=== PATIENT | male | born 1995 | race Caucasian/White ===

== ENCOUNTER 2018-11-21 11:26 | Emergency (ER) | payer OTHER ==
[2018-11-21 11:30] VITALS: BP 132/60; PULSE 102; TEMP 98.1; BMI 22.6
[2018-11-21] MEDS ORDERED: MAG HYDROX/AL HYDROX/SIMETH 30 ML UNIT-DOSE CUP ONE (12:28)
[2018-11-21] MEDS ORDERED: MAG HYDROX/AL HYDROX/SIMETH 30 ML UNIT-DOSE CUP PO ONE (12:35)
[2018-11-21 12:40] LABS: BASO % 0.3 % (0-2.0); EOS % 0.3 % (0-4.5); HEMATOCRIT 44.6 % (35.4-49); HEMOGLOBIN 15.9 GM/dL (11.7-16.9); LYMPH % 11.9 % (8-40); MCH 30.4 pg (25.7-33.7); MCHC 35.6 g/dl (32.0-35.9); MEAN CELL VOLUME 85.3 fl (80-96); MEAN PLT VOLUME 8.7 fl (7.5-11.1); MONO % 2.6 % (3.8-10.2); NEUT % 84.9 % (42.8-82.8); PLATELET COUNT 228 K/MM3 (134-434); RBC 5.22 M/mm3 (4.00-5.60); RDW 12.9 % (11.9-15.9)
--- NOTE | 2018-11-21 12:41 | PDOC ---
History of Present Illness - General Chief Complaint: Pain Stated Complaint: ABD PAIN Time Seen by Provider: 11/21/18 11:48 History Source: Patient Exam Limitations: Clinical Condition - History of Present Illness Initial Comments: 11/21/18 12:37 Patient with no significant past medical history present with complaint of epigastric pain upon wake this morning after eating a [employer] restaurant yesterday. Patient reported pain as cramping epigastric pain and occasional burping after drinking soda this morning. Denies nausea, vomiting, diarrhea, constipation. Denies any other symptoms. Patient reported pain has been improving since being in the ER and now only have mild epigastric pain. Denies any other symptoms Timing/Duration: 4-6 hours Past History - Past Medical History Allergies/Adverse Reactions: Allergies Allergy/AdvReac Type Severity Reaction Status Date / Time No Known Allergies Allergy Verified 11/21/18 11:30 Home Medications: Ambulatory Orders Mag Hydrox/Aluminum Hyd/Simeth [Maalox Advanced Suspension] 30 ml PO Q8H PRN # 200 ml 11/21/18 COPD: No - Suicide/Smoking/Psychosocial Hx Smoking History: Never smoked Information on smoking cessation initiated: No Hx Alcohol Use: No Drug/Substance Use Hx: No Review of Systems - Review of Systems Able to Perform ROS?: Yes Is the patient limited Tongan proficient: No Constitutional: No: Chills, Fever, Malaise HEENTM: No: Symptoms Reported, See HPI, Eye Pain, Blurred Vision, Tearing, Recent change in vision, Double Vision, Cataracts, Ear Pain, Ocular Prothesis, Ear Discharge, Nose Pain, Nose Congestion, Tinnitus, Nose Bleeding, Hearing Loss , Throat Pain, Throat Swelling, Mouth Pain, Dental Problems, Difficulty Swallowing, Mouth Swelling, Other Respiratory: No: Symptoms reported, See HPI, Cough, Orthopnea, Shortness of Breath, SOB with Exertion, SOB at Rest, Stridor, Wheezing, Productive cough, Hemoptysis, Other Cardiac (ROS): No: Symptoms Reported, See HPI, Chest Pain, Edema, Irregular Heart Rate, Lightheadedness, Palpitations, Syncope, Chest Tightness, Other ABD/GI: Yes: See HPI, Abdominal cramping (epigastric). No: Constipated, Diarrhea, Difficulty Swallowing, Nausea, Rectal Bleeding, Vomiting, Tarry Stools All Other Systems: Reviewed and Negative *Physical Exam - Vital Signs Last Vital Signs Temp Pulse Resp BP Pulse Ox 98.1 F 102 H 13 132/60 100 11/21/18 11:28 11/21/18 11:28 11/21/18 11:28 11/21/18 11:28 11/21/18 11:28 - Physical Exam Comments: 11/21/18 12:39 GENERAL: Well developed, well nourished. Awake and alert. No acute distress. HEENT: Normocephalic, atraumatic. PERRLA, EOMI. No conjunctival pallor. Sclera are non-icteric. Moist mucous membranes. Oropharynx is clear. NECK: Supple. Full ROM. CARDIOVASCULAR: Regular rate and rhythm. No murmurs, rubs, or gallops. Distal pulses are 2+ and symmetric. PULMONARY: No evidence of respiratory distress. Lungs clear to auscultation bilaterally. No wheezing, rales or rhonchi. ABDOMINAL: Soft. Non-tender. Non-distended. No rebound or guarding. No organomegaly. Normoactive bowel sounds. MUSCULOSKELETAL Normal range of motion at all joints. SKIN: Warm and dry. Normal capillary refill. No rashes. No jaundice. NEUROLOGICAL: Alert, awake, appropriate. Gait is normal without ataxia. PSYCHIATRIC: Cooperative. Good eye contact. Appropriate mood General Appearance: Yes: Nourished, Appropriately Dressed. No: Apparent Distress Moderate Sedation - Procedure Monitoring Vital Signs: Procedure Monitoring Vital Signs Temperature 98.1 F 11/21/18 11:28 Pulse Rate 102 H 11/21/18 11:28 Respiratory Rate 13 11/21/18 11:28 Blood Pressure 132/60 11/21/18 11:28 O2 Sat by Pulse Oximetry (%) 100 11/21/18 11:28 ED Treatment Course - LABORATORY CBC & Chemistry Diagram: 11/21/18 12:12 11/21/18 12:12 Medical Decision Making - Medical Decision Making 11/21/18 12:39 Patient with no past medical history present with complaint of epigastric pain since this morning after eating in the restaurant last night. Patient denies any other symptoms and reported pain has been improving and now only how mild pain. Denies nausea, vomiting, diarrhea or constipation. Clinical exam unremarkable with no abdominal tenderness on exam. Lungs clear to auscultation. CBC, CMP and lipase lab ordered. By mouth Maalox 30 mL ordered for epigastric pain. Patient report complete resolve of symptoms after Maalox. Patient be discharged home if labs 11/21/18 13:15 CBC and chemistry labs unremarkable. Patient report complains resolve of symptoms and stable for discharge *DC/Admit/Observation/Transfer Diagnosis at time of Disposition: Indigestion Abdominal pain Qualifiers: Abdominal location: epigastric Qualified Code(s): R10.13 - Epigastric pain - Discharge Dispostion Disposition: HOME Condition at time of disposition: Stable Decision to Admit order: No - Prescriptions Prescriptions: Mag Hydrox/Aluminum Hyd/Simeth [Maalox Advanced Suspension] 30 ml PO Q8H PRN # 200 ml PRN Reason: abdominal discomfort - Referrals Referrals: Yury Tello [Primary Care Provider] - - Patient Instructions Printed Discharge Instructions: Intestinal Gas (Alternative Therapy) Additional Instructions: Your labs was normal.Take prescribed medication as needed for abdominal pains. Increase fluid intake. Follow-up with PCP as needed. - Post Discharge Activity
--- NOTE | 2018-11-21 12:41 | PDOC ---
*Physical Exam - Vital Signs Last Vital Signs Temp Pulse Resp BP Pulse Ox 98.1 F 102 H 13 132/60 100 11/21/18 11:28 11/21/18 11:28 11/21/18 11:28 11/21/18 11:28 11/21/18 11:28 - Physical Exam Comments: 11/21/18 12:41 The patient was examined by LATA Tmaayo] under my direct supervision. I personally evaluated the patient. I concur with the above findings and the plan of care. ED Treatment Course - LABORATORY CBC & Chemistry Diagram: 11/21/18 12:12 11/21/18 12:12 - Medications Given in the ED: ED Medications Discontinued Medications Generic Name Dose Route Start Last Admin Trade Name Freq PRN Reason Stop Dose Admin Al Hydroxide/Mg Hydroxide 30 ml 11/21/18 12:35 11/21/18 12:37 Mylanta Oral Suspension - PO 11/21/18 12:36 30 ml ONCE ONE Administration *DC/Admit/Observation/Transfer Diagnosis at time of Disposition: Abdominal pain, Indigestion - Discharge Dispostion Disposition: HOME Condition at time of disposition: Stable - Prescriptions Prescriptions: Mag Hydrox/Aluminum Hyd/Simeth [Maalox Advanced Suspension] 30 ml PO Q8H PRN # 200 ml PRN Reason: abdominal discomfort - Referrals Referrals: Yury Tello [Primary Care Provider] - - Patient Instructions Printed Discharge Instructions: Intestinal Gas (Alternative Therapy) Additional Instructions: Your labs was normal.Take prescribed medication as needed for abdominal pains. Increase fluid intake. Follow-up with PCP as needed. - Post Discharge Activity
[2018-11-21 12:50] LABS: ALBUMIN 4.8 g/dl (3.4-5.0); ALK PHOS 88 U/L (45-117); ANION GAP 4 MMOL/L (8-16); BILIRUBIN,TOTAL 0.4 mg/dL (0.2-1); BLOOD UREA NITROGEN 7 mg/dL (7-18); CHLORIDE 102 mmol/L (98-107); CO2 30 mmol/L (21-32); CREATININE 0.8 mg/dL (0.55-1.3); GLUCOSE,RANDOM 114 mg/dL (74-106); LIPASE 125 U/L (73-393); POTASSIUM 3.8 mmol/L (3.5-5.1); SGOT/AST 13 U/L (15-37); SGPT/ALT 26 U/L (13-61); SODIUM 135 mmol/L (136-145); TOT PROT 7.9 g/dl (6.4-8.2)
== END 2018-11-21 13:28 | disposition home or self-care (01) ==
LOC: JER 11:26
DX: K30 Functional dyspepsia (principal); R10.13 Epigastric pain
CPT/HCPCS: 36415; 80053; 83690; 85025; 99281-25